=== PATIENT | female | born 1930 | race Caucasian/White ===

== ENCOUNTER 2018-09-28 13:28 | Inpatient (IN) | payer OTHER ==
[2018-09-28] VITALS (7 sets, daily range): BP systolic 97–152; BP diastolic 59–109
[~2018-09-28] VITALS: Ht 121.9 cm; Wt 64.2 kg
--- NOTE | ~2018-09-28 | HC ---
[facility] [place] [address] CONSULTATION Name: ENMABRET SUMIT Room #: 353-P [facility] IN .R.#: [id number] Admission: 09/28/18 Attend Phys: Joel Chambers MD Discharge: Date of : 03/25/29 Report #: [id number] THIS REPORT FOR: //name// CC: Joel Rodriguez DATE OF SERVICE: 09/28/2018 HISTORY OF PRESENT ILLNESS: This is an 88-year-old female patient who was evaluated because the patient's CT scan showed a possible pontine lacunar stroke. The patient was admitted with multiple symptoms. She said she woke up this morning when she was dizzy. She said her blood pressure was low. She does have a history of atrial fibrillation. Her speech was not very good and she has improved since then. She is not completely back to the baseline, but is feeling better. REVIEW OF SYSTEMS: A 14-point review of system was carried out and it looks like the patient [facility] an [facility], subsequently [facility] to [facility] facility. She has some wound on the left leg. A 14-point review of systems is positive for atrial fibrillation, looks like she is on anticoagulation. 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 This was a relevant 14-point review of system. PAST MEDICAL HISTORY: Positive for atrial fibrillation. FAMILY HISTORY: Unremarkable. SOCIAL HISTORY: She does not abuse alcohol. PHYSICAL EXAMINATION: The patient is alert, responsive, oriented, able to follow simple and complex commands. Her speech, concentration, fund of knowledge and memory is at her baseline. Cranial nerve examination II-XII looks unremarkable. It is difficult to carry out the lower extremity examination because she has a wound there, but the patient to some extent has weakness in all 4 extremities, but she indicates she is better. There is no meningeal sign in this patient. White count is 12.3. Blood pressure is 152/109, respiration is 17, pulse is 98, and temperature is 98.4. MRI and MRA were ordered and they were unremarkable. IMPRESSION: It will appear that the patient's weakness may have been related to hypotension as well as other metabolic abnormalities including hyponatremia. MAGISTRATE ASSISTANT pathology is less likely. She is already on Xarelto and I am not sure much [address] [address] CONSULTATION Name: BRET NORWOOD [place] Room #: 353-P [facility] IN ..#: [id number] Admission: 09/28/18 Attend Phys: Joel Chambers MD Discharge: Date of : 03/25/29 Report #: [id number] else can be done. We will ask Dr. Keys to follow up this patient with you from tomorrow. By: 1832 0230 Kenneth Sanchez MD /nt
[~2018-09-28 13:28] MED LIST: AVAPRO75 MG PO; CARDIOTEK-RX T1 EACH PO; CARVEDILOL6.25 MG PO; CEPHALEXIN 500500 M1 PO; COLACE100 MG PO; DIOVAN 80 MG TA80 M1 PO; DOXEPIN 10 MG C10 MG PO; FUROSEMIDE 40 M40 M1 PO; HAIR VITAMIN1 EACH PO; KRILL OIL500 MG PO; LASIX 40 MG TAB40 M2 PO; LASIX 80 MG TAB80 M1 PO; NEXIUM 40 MG CA40 M1 PO; POTASSIUM20 PO; PROAIR HFA8.5 GM INH; SORINE 80 MG TA80 M1 PO; SULFAZINE EC500 MG PO; SYMBICORT160 MCG/4. PO; SYNTHROID25 MC1 PO; VITAMIN D2000 UNIT PO; XARELTO15 MG PO
[2018-09-28 13:45] LABS: ABSOLUTE NEUTROPHILS 10.1 thou/uL (1.4-8.2); BASOPHILS 0.1 % (0.0-2.0); EOSINOPHILS 0.6 % (0.0-3.0); HEMATOCRIT 34.2 % (37.0-47.0); HEMOGLOBIN 11.5 gm/dL (12.0-15.0); LYMPHOCYTES 10.5 % (24.0-44.0); MCH 27.6 pg (26.0-34.0); MCHC 33.5 g/dL (28.0-37.0); MCV 82.4 fL (80.0-100.0); MONOCYTES 6.8 % (1.0-8.0); PLATELET COUNT 365 thou/uL (150-400); RBC 4.15 mil/uL (4.20-5.00); RDW 15.7 % (10.5-14.5); WBC 12.3 thou/uL (4.0-11.0)
[2018-09-28 13:53] LABS: ANION GAP 6 mmol/L (7-16); BUN 30 mg/dL (7-18); CALCIUM 8.9 mg/dL (8.5-10.1); CHLORIDE 95 mmol/L (98-107); CO2 30 mmol/L (21-32); CREATININE 1.1 mg/dL (0.6-1.0); GLUCOSE 116 mg/dL (74-106); POTASSIUM 3.8 mmol/L (3.5-5.1); SODIUM 131 mmol/L (136-145)
[2018-09-28 13:57] LABS: APTT 27.3 Seconds (24.5-32.8); PROTIME 10.9 Seconds (9.3-11.4)
[2018-09-28 14:00] LABS: URINE BILIRUBIN NEGATIVE (Negative); URINE BLOOD NEGATIVE (Negative); URINE CLARITY CLEAR; URINE COLOR YELLOW; URINE GLUCOSE-RANDOM* NEGATIVE (Negative); URINE KETONES NEGATIVE (Negative); URINE LEUKOCYTES NEGATIVE (Negative); URINE NITRITE NEGATIVE (Negative); URINE PROTEIN (DIPSTICK) NEGATIVE (Negative); URINE SPECIFIC GRAVITY <= 1.005 (1.005-1.035); URINE UROBILINOGEN 0.2 E.U./dl (0.2-1.0)
[2018-09-28 14:03] LABS: SGOT 25 U/L (15-37); SGPT 34 U/L (30-65); TOTAL BILIRUBIN 0.5 mg/dL (<0.1-1.0); TOTAL PROTEIN 6.2 g/dL (6.4-8.2); TROPONIN-I <0.06 ng/mL (<0.06)
[2018-09-28] MEDS ORDERED: PREDNISONE 5 MG5 M1 PO (15:54)
[2018-09-28] MEDS ORDERED: NYSTATIN100000 UNI SW&SWALLOW (15:54)
--- NOTE | 2018-09-28 19:42 | NUR ---
PT came ER gen weakness at 1720pm,pt's admitted assessment has done, pt is A&O X3, PT's BIGG stroke score is 0, pt's vs are stable, floow admitted order, pt starts IV NS @ 100ML/HR, PT denies pain , sob and new weakness at this time.
[2018-09-28 23:06] LABS: GLYCOHEMOGLOBIN (HGB A1C) 6.1 % (4.8-5.6)
[2018-09-29 04:00] VITALS: BP 121/78
[2018-09-29 05:18] LABS: ABSOLUTE NEUTROPHILS 4.9 thou/uL (1.4-8.2); BASOPHILS 0.2 % (0.0-2.0); HEMATOCRIT 29.7 % (37.0-47.0); HEMOGLOBIN 10.3 gm/dL (12.0-15.0); LYMPHOCYTES 21.5 % (24.0-44.0); MCH 28.5 pg (26.0-34.0); MCHC 34.9 g/dL (28.0-37.0); MCV 81.8 fL (80.0-100.0); MONOCYTES 8.5 % (1.0-8.0); PLATELET COUNT 338 thou/uL (150-400); POLYS 67.8 % (36.0-66.0); RBC 3.62 mil/uL (4.20-5.00); RDW 15.3 % (10.5-14.5); WBC 7.3 thou/uL (4.0-11.0)
[2018-09-29 05:51] LABS: ANION GAP 7 mmol/L (7-16); BUN 24 mg/dL (7-18); CALCIUM 8.1 mg/dL (8.5-10.1); CHLORIDE 100 mmol/L (98-107); CHOLESTEROL 145 mg/dL (<200); CO2 28 mmol/L (21-32); CREATININE 0.8 mg/dL (0.6-1.0); GLUCOSE 81 mg/dL (74-106); HDL CHOLESTEROL 46 mg/dL (>40); LDL CHOLESTEROL 83 mg/dL (<100); MAGNESIUM 1.8 mg/dL (1.8-2.4); POTASSIUM 3.8 mmol/L (3.5-5.1); SODIUM 135 mmol/L (136-145); TC:HDL 3.2 Ratio (Not establshd); TRIGLYCERIDE 81 mg/dL (<150); VLDL 16 mg/dL (<40)
[2018-09-29 05:53] LABS: SERUM ASSESSMENT Clear
--- NOTE | 2018-09-29 06:03 | NUR ---
PATIENT IS PROGRESSING SLOWLY IN HER CARE PLAN. VITAL SIGNS STABLE WITH PATIENT HAVING NO COMPLAINTS OF PAIN OR NAUSEA. PATIENT REMAINED FULLY ORIENTED THROUGHOUT SHIFT AND WAS ABLE TO CALL APPROPRIATELY FOR NEEDS. NIH CVA SCALE EFFECTIVELY ZERO WHEN ASSESSED PER DOCTOR ORDER. PATIENT DID HAVE PROBLEMS WITH BLADDER RETENTION AND WAS STRAIGHT CATHED DURING SHIFT. NURSE TO BLADDER SCAN BEFORE SHIFT CHANGE. CONTINUE PLAN OF CARE.
[2018-09-29 07:49] VITALS: BP 131/75
--- NOTE | 2018-09-29 10:17 | NUR ---
WOUND CONSULT; WOUNDS WERE IDENTIFIED; W/P#1; RIGHT BUTTOCK STAGE 2, W/P #2; LEFT ISCHIAL TUBEROSITY STAGE 2. W/O #1; LEFT ANTERIOR LE, SKIN TEAR. THE RIFGT BUTTOCK AND LEFT I/T FIBRIN WAS NOTED IN THE WOUND BED. THE LEFT ANT. LE IS A SKIN TEAR APPRIMATED THE SKIN AND APPLIED MARATHON, COVERED WITH A FOAM DRESSING. RECOMMENDATIONS; YVAN PUMP. ( RIGHT BUTTOCK AND LEFT I/T); NEREIDA, COVER WITH A BOARDERED FOAM, CHANGE M/W/F DISCUSSED WITH VANGIE
--- NOTE | 2018-09-29 10:56 | 2DMMODE ---
[facility] [address] [place] [address] 2 D/M-MODE ECHOCARDIOGRAM Name: BRET NORWOOD Room #: 353-P [facility] IN .R.#: [id number] Admission: 09/28/18 Attend Phys: Joel Chambers MD Discharge: Date of : 03/25/29 Date of Service: 09/29/18 1056 Report #: [id number] THIS REPORT FOR: //name// APPROVED REPORT Study performed: 09/29/2018 08:25:13 EXAM: Comprehensive 2D, Doppler, and color-flow Echocardiogram Patient Location: Echo lab Room #: 353 Status: routine BSA: 1.59 HR: 71 bpm BP: 131/75 mmHg Rhythm: Ireggular Other Information Study Quality: Good Indications Weakness. TIA rule out. Hx: Afib, COPD, HTN. Echo Enhancing Agent Indication: Rule out Shunt Agent(s) / Amount(s) Used: Agitated Saline 6 cc 2D Dimensions RVDd: 28.27 mm IVSd: 10.76 (7-11mm) LVOT Diam: 20.02 (18-24mm) LVDd: 42.26 mm PWd: 8.95 (7-11mm) Ascending Ao: 39.00 (22-36mm) LVDs: 30.75 (25-40mm) Aortic Root: 33.18 mm Volumes Left Atrial Volume (Systole) Single Plane 4CH: 52.72 mL Single Plane 2CH: 74.54 mL LA ESV Index: 42.00 mL/m2 Aortic Valve AoV Peak Ananda.: 1.62 m/s AO Peak Gr.: 10.45 mmHg LVOT Max P.49 mmHg LVOT Max V: 1.06 m/s LATASHA Vmax: 2.06 cm2 [facility] [employer] [address] [place] [address] 2 D/M-MODE ECHOCARDIOGRAM Name: BRET NORWOOD Room #: 353-P [facility] IN ..#: [id number] Admission: 09/28/18 Attend Phys: Joel Chambers MD Discharge: Date of : 03/25/29 Date of Service: 09/29/18 1056 Report #: [id number] Mitral Valve E/A Ratio: 2.9 MV Decel. Time: 235.62 ms MV E Max Ananda.: 1.41 m/s MV A Ananda.: 0.49 m/s MV PHT: 68.33 ms IVRT: 87.66 ms Pulmonary Valve PV Peak Ananda.: 0.83 m/s PV Peak Gr.: 2.73 mmHg Pulmonary Vein P Vein S: 0.52 m/s P Vein A: 0.24 m/s P Vein D: 0.60 m/s P Vein A Dur.: 120.0 msec P Vein S/D Ratio: 0.87 Tricuspid Valve TR Peak Ananda.: 2.56 m/s RAP Estimate: 5.00 mmHg TR Peak Gr.: 26.21 mmHg PA Pressure: 31.00 mmHg Left Ventricle The left ventricle is normal size. There is normal LV segmental wall motion. There is normal left ventricular wall thickness. Left ventricular systolic function is normal. LVEF is 55-60%. Right Ventricle The right ventricle is normal size. The right ventricular systolic function is normal. Atria Left atrium is moderately dilated. No shunting noted by contrast bubble injection. The right atrium size is normal. Aortic Valve The aortic valve is normal in structure. Trace aortic regurgitation. There is no aortic valvular stenosis. Mitral Valve The mitral valve is normal in structure. Mild mitral regurgitation. Tricuspid Valve The tricuspid valve is normal in structure. Mild tricuspid regurgitation. Estimated PAP is 30-35mmHg. [address] [address] 2 D/M-MODE ECHOCARDIOGRAM Name: ENMABRET SUMIT Room #: 353-P [facility] IN [facility]#: [id number] Admission: 09/28/18 Attend Phys: Joel Chambers MD Discharge: Date of : 03/25/29 Date of Service: 09/29/18 1056 Report #: [id number] Pulmonic Valve The pulmonary valve is normal in structure. Trace pulmonic regurgitation. Great Vessels The aortic root is normal in size. The ascending aorta is mildly dilated. IVC is normal in size and collapses >50% with inspiration. Pericardium Small pericardial effusion noted. <Conclusion> The left ventricle is normal size. LVEF is 55-60%. Left atrium is moderately dilated. The aortic valve is normal in structure. Trace aortic regurgitation. The mitral valve is normal in structure. Mild mitral regurgitation. The tricuspid valve is normal in structure. Mild tricuspid regurgitation. Estimated PAP is 30-35mmHg. The pulmonary valve is normal in structure. Trace pulmonic regurgitation. The ascending aorta is mildly dilated. Small pericardial effusion noted. <ELECTRONICALLY SIGNED> By: Jordon Petersen MD 09/29/18 1056 1056 1056 Jordon Petersen MD /INF
[2018-09-29 11:53] VITALS: BP 107/61
--- NOTE | 2018-09-29 12:14 | NUR ---
PATIENT SEEN BY PENELOPE MEYER PIE DOUGH ROLLER WITH DR. TSANG, FOR ACUTE REHAB EVALUATION. PATIENT IS TOO HIGH FUNCTIONING FOR ACUTE REHAB. PENELOPE RECOMMENDED HOME WITH HOME HEALTH CARE. GUEST RELATIONS OFFICER INFORMED. THANK YOU FOR THIS REFERRAL.
[2018-09-29 13:26] LABS: TSH 4.485 uIU/mL (0.358-3.740)
--- NOTE | 2018-09-29 13:35 | NUR ---
ASSESSMENT: CM REVIEWED CHART AND MET WITH [place] AND HER SON AT THE BEDSIDE. PT WAS ADMITTED FOR STROKE LIKE SYMPTOMS BUT APPEARS TO BE BACK AT HER BASELINE. PT WAS RECENTLY AT [place] AND WENT TO THE [facility] SWING BED AND THEN WAS DISCHARGED HOME WITH [facility]. PT WAS THEN ADMITTED HERE TO [facility]. PT REPORTS SHE FEELS FINE AND WANTS TO RETURN HOME WITH HH. SON STATING THAT HE WANTS HER TO GO TO [facility] BECAUSE SHE HAS BEEN IN THE HOSPITAL A COUPLE TIMES HERE RECENTLY. PT STATING SHE DOES NOT WANT TO AND WANTS TO GO HOME WITH HH. PT REPORTS USING A WALKER FOR AMBULATION. PT REPORTS 3 STEPS TO ENTER THE HOME WITH [facility]. PT REPORTS HAVING A GRAB BAR IN THE SHOWER. PT/OT WORKING WITH PATIENT AND RECOMMENDING HOME OR HOME WITH HH. PT REPORTS SHE WISHES TO RESUME HER SERVICES WITH VN. CM SENT REFERRAL TO [facility]. FAMILY IS WANTING TO TALK WITH DR. SPARROW. DR. SPARROW NOTIFIED AND IS TO TALK WITH FAMILY TODAY. IF PATIENT IS STABLE TO LEAVE OVER THE WEEKEND WITH HOME HEALTH, [facility] HAS ACCEPTED PATIENT AND WILL NEED TO HAVE DISCHARGE ORDERS FAXED TO THEM AT FAX:[phone]. CONTACT FOR THE [facility]:[phone].
--- NOTE | 2018-09-29 13:59 | NUR ---
Nutrition: Pt admit with weakness, R/O TIA. Seen due to wound risk. Stage 2 right buttock, Left IT wounds, and LE skin tear. Pt eating fair 50-75% of meals. Recent hospitalization and treatment for CAP which resulted in approx. 5# weight loss. 3%, favorable considering obesity. Pt would like to keep her weight around 140#. Encouraged adequate protein intake for wound healing. Pt likes meat, eggs, and milk and agrees to aim for 100% protein foods on tray. Low nutrition risk.
--- NOTE | 2018-09-29 14:00 | NUR ---
ASSUMED CARE OF PT AT 0700 THIS SHIFT. PT HAS BEEN COOPERATIVE, HAS DENIED ANY PAIN THIS SHIFT. PT HAS BEEN WANTING TO TALK T0 THE DOCTOR FOR FURTHER PLANS WHEN DISCHARGE. PT AND FAMILY CAME TO A TEMPORARY DECISION. ASSESSMENTS ARE DOCUMENTED. PT HAS HAD FAMILY VISIT, EDUCATION WAS PROVIDED. PLAN OF CARE IS TO CONITINUE T MONITOR CLOSELY AT THIS TIME, AND DISCHARGE PT TOMORROW.
[2018-09-29 16:21] VITALS: BP 134/93
--- NOTE | 2018-09-29 18:08 | EKG ---
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
[2018-09-29 19:50] VITALS: BP 127/44
[2018-09-30 03:38] VITALS: BP 132/75
[2018-09-30 05:30] LABS: HEMATOCRIT 30.2 % (37.0-47.0); HEMOGLOBIN 10.1 gm/dL (12.0-15.0); MCH 27.5 pg (26.0-34.0); MCHC 33.4 g/dL (28.0-37.0); MCV 82.2 fL (80.0-100.0); RBC 3.67 mil/uL (4.20-5.00); RDW 15.8 % (10.5-14.5); WBC 7.2 thou/uL (4.0-11.0)
[2018-09-30 05:44] LABS: CALCIUM 7.9 mg/dL (8.5-10.1); CREATININE 0.7 mg/dL (0.6-1.0); POTASSIUM 3.7 mmol/L (3.5-5.1)
[2018-09-30 07:28] VITALS: BP 158/94
[2018-09-30 15:35] VITALS: BP 158/94
[2018-09-30 15:55] VITALS: BP 156/97
--- NOTE | 2018-10-01 10:18 | HC ---
[facility] [place] [address] CONSULTATION Name: BRET NORWOOD Room #: 353-P [facility] IN ..#: [id number] Admission: 09/28/18 Attend Phys: Joel Chambers MD Discharge: 09/30/18 Date of : 03/25/29 Report #: [id number] THIS REPORT FOR: //name// CC: JOEL Oreillya Jennifer DATE OF SERVICE: 09/30/2018 HISTORY OF PRESENT ILLNESS: The patient is an 88-year-old female who was admitted with complaints of feeling generalized fatigue and dizziness. CT scan of her head showed possible pontine lacunar infarct; however, MRI was negative. She had been evaluated by Neurology. Her symptoms were thought to be not from a REGULATORY COMPLIANCE COORDINATOR event, more likely related to hypotension and other metabolic abnormalities including hyponatremia. Reason for GI consultation was earlier this morning. The patient was eating and had an episode of dysphagia. She reports no previous episodes of dysphagia recently. She does have a history of gastroesophageal reflux disease, takes Nexium on a daily basis. Denies any heartburn symptoms. She denies any odynophagia. She believes her mouth was dry and was eating a muffin as well as an egg at that time and was after this past, was able to eat, drink swallow both liquids and solids since then without difficulty. She is unsure if she has ever had an upper endoscopy in the past. Again, she denies any significant history of dysphagia or odynophagia prior to this morning. She denies any blood in her stools. She is on Xarelto for history of AFib. PAST MEDICAL HISTORY: Previous cholecystectomy, COPD, hypertension, gastroesophageal reflux disease, previous hysterectomy, cataract surgery bilaterally, history of atrial fibrillation, hypertension. MEDICATIONS ON ADMISSION: Carvedilol, potassium chloride, Lasix, Xarelto, ProAir, Symbicort, vitamin D, sotalol, Avapro, Colace and Synthroid. ALLERGIES: TETRACYCLINE. REVIEW OF SYSTEMS: As per HPI. SOCIAL HISTORY: She denies any tobacco or alcohol use. FAMILY HISTORY: Negative for colon cancer. PHYSICAL EXAMINATION: VITAL SIGNS: Temperature is 98.1, pulse 92, blood pressure 158/94, respiratory rate is 22. GENERAL: She is alert and oriented x 3, in no acute distress. HEENT: Sclerae nonicteric. Oropharynx clear. NECK: Supple, without lymphadenopathy. [facility] [address] [place] [address] CONSULTATION Name: BRET NORWOOD SUMIT Room #: 353-P [facility] IN .R.#: [id number] Admission: 09/28/18 Attend Phys: Joel Chambers MD Discharge: 09/30/18 Date of : 03/25/[birth year] Report #: [id number] CARDIOVASCULAR: Regular rate. CHEST: Clear to auscultation bilaterally. ABDOMEN: Soft, nontender, nondistended, normoactive bowel sounds. EXTREMITIES: No cyanosis, clubbing or edema. LABORATORY DATA: Sodium 135, potassium 3.7, chloride 100, bicarbonate 28, BUN 15, creatinine 0.7, AST 25, total bilirubin 0.5, calcium 7.9, magnesium 1.8, alkaline phosphatase 102, ALT 34, total protein 6.2, albumin 3.0. Troponin less than 0.06. INR 1.0. WBC 7.2, hemoglobin 10.1, was 11.5 on admission, MCV 82.2, platelet count is 312. ASSESSMENT AND PLAN: 1. Dysphagia. The patient with one episode today eating of bran muffin and eggs. She denies any dysphagia or odynophagia prior to this event and since then has been able to swallow without difficulty. I suspect this may have been the consistency of the food being dry as well as her throat. I explained to the patient we could proceed with an upper endoscopy at some point if there are recurrent symptoms. However, she would need to be off Xarelto, especially if the plan was to dilate. Since she was not having symptoms before or after, I would observe at this time. Again, if there are recurrent symptoms, could consider endoscopy at that point. She agrees with this plan. 2. Gastroesophageal reflux disease. Heartburn is well controlled on daily Nexium. We would continue. Thank you for allowing me to participate in her care. <ELECTRONICALLY SIGNED> By: Pedro Cooper MD 10/01/18 1018 1240 26 Pedro Cooper MD /nt
== END 2018-09-30 18:27 | disposition home health service (06) | DRG 69 ==
LOC: ER 13:28 → EROBS 15:07 → 3W 15:07
PROVIDERS: Emergency Medicine; Nurse Practitioner; Psychiatry & Neurology Neuromuscular Medicine; ADMIT Hospitalist
DX: G45.9 Transient cerebral ischemic attack, unspecified (principal); E87.1 Hypo-osmolality and hyponatremia; J98.11 Atelectasis; Z68.41 Body mass index [BMI] 40.0-44.9, adult; N19 Unspecified kidney failure; J44.9 Chronic obstructive pulmonary disease, unspecified; K21.9 Gastro-esophageal reflux disease without esophagitis; I10 Essential (primary) hypertension; I48.91 Unspecified atrial fibrillation; E03.9 Hypothyroidism, unspecified; E86.0 Dehydration; J45.909 Unspecified asthma, uncomplicated; R13.10 Dysphagia, unspecified; I95.9 Hypotension, unspecified; E66.9 Obesity, unspecified; Z79.899 Other long term (current) drug therapy; Z90.710 Acquired absence of both cervix and uterus; Z98.42 Cataract extraction status, left eye; Z98.41 Cataract extraction status, right eye; Z88.1 Allergy status to other antibiotic agents; Z90.49 Acquired absence of other specified parts of digestive tract
CPT/HCPCS: 10879

== ENCOUNTER 2018-10-01 17:14 | Emergency (ER) | payer OTHER ==
[~2018-10-01] VITALS: Ht 149.9 cm; Wt 64.0 kg
[~2018-10-01 17:14] MED LIST changes: +NYSTATIN100000 UNI SW&SWALLOW; +PREDNISONE 5 MG5 M1 PO
[2018-10-01 18:32] LABS: URINE BILIRUBIN NEGATIVE (Negative); URINE BLOOD 3+ (Negative); URINE CLARITY CLEAR; URINE COLOR YELLOW; URINE GLUCOSE-RANDOM* NEGATIVE (Negative); URINE KETONES NEGATIVE (Negative); URINE LEUKOCYTES 3+ (Negative); URINE NITRITE NEGATIVE (Negative); URINE PROTEIN (DIPSTICK) NEGATIVE (Negative); URINE SPECIFIC GRAVITY <= 1.005 (1.005-1.035); URINE UROBILINOGEN 0.2 E.U./dl (0.2-1.0)
[2018-10-01 18:37] LABS: SQUAMOUS >10 Many /LPF (0-3)
[2018-10-01 18:39] LABS: BACTERIA None Seen /HPF (None Seen); CASTS None Seen /LPF (None Seen); CRYSTALS None Seen /LPF (None Seen); URINE RBC 0-2 Rare /HPF (0-2); URINE WBC 0-5 Rare /HPF (0-5)
[2018-10-01 18:53] LABS: BASOPHILS 0.2 % (0.0-2.0); EOSINOPHILS 0.4 % (0.0-3.0); HEMATOCRIT 36.2 % (37.0-47.0); LYMPHOCYTES 9.9 % (24.0-44.0); MCH 27.2 pg (26.0-34.0); MCHC 33.4 g/dL (28.0-37.0); MCV 81.6 fL (80.0-100.0); PLATELET COUNT 361 thou/uL (150-400); POLYS 84.5 % (36.0-66.0); RBC 4.44 mil/uL (4.20-5.00); RDW 15.3 % (10.5-14.5); WBC 10.6 thou/uL (4.0-11.0)
[2018-10-01 18:58] LABS: HEMOGLOBIN 12.1 gm/dL (12.0-15.0)
[2018-10-01 19:00] LABS: CALCIUM 8.8 mg/dL (8.5-10.1); CREATININE 0.8 mg/dL (0.6-1.0); POTASSIUM 4.4 mmol/L (3.5-5.1)
[2018-10-01 19:06] LABS: ALBUMIN 3.3 g/dL (3.4-5.0); TOTAL BILIRUBIN 0.7 mg/dL (<0.1-1.0); TOTAL PROTEIN 6.9 g/dL (6.4-8.2)
[2018-10-01 19:08] LABS: INR 1.1; PROTIME 11.2 Seconds (9.3-11.4)
[2018-10-01 20:53] VITALS: BP 167/105
--- NOTE | 2018-10-03 17:11 | EKG ---
[place] [address] 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 : 1930 Requested By: Elda Miller Order Number: [id number] MD: Eagle Sanchez Measurements Intervals [place] Rate: 79 P: 51 GA: 154 QRS: 23 QRSD: 87 T: 21 QT: 399 QTc: 458 Interpretive Statements Sinus rhythm Atrial premature complex Compared to ECG 09/28/2018 13:33:23 Atrial premature complex(es) now present Poor R-wave progression no longer present Electronically Signed On 10-03-2018 17:10:58 CDT by Eagle Sanchez [email or web address] <ELECTRONICALLY SIGNED> By: Eagle Sanchez MD, [facility] 10/03/18 1710 18 18 Eagle Sanchez MD, [facility] /EPI
== END 2018-10-01 20:56 | disposition home or self-care (01) ==
LOC: ER 17:14
PROVIDERS: Physician Assistant
DX: S00.03XA Contusion of scalp, initial encounter (principal); R53.1 Weakness; I10 Essential (primary) hypertension; J44.9 Chronic obstructive pulmonary disease, unspecified; K21.9 Gastro-esophageal reflux disease without esophagitis; I48.91 Unspecified atrial fibrillation; Z90.710 Acquired absence of both cervix and uterus; Z98.41 Cataract extraction status, right eye; Z98.42 Cataract extraction status, left eye; Z88.1 Allergy status to other antibiotic agents; W18.39XA Other fall on same level, initial encounter; Y92.89 Other specified places as the place of occurrence of the external cause; Y93.89 Activity, other specified; Y99.8 Other external cause status

== ENCOUNTER 2019-02-03 10:54 | Inpatient (IN) | payer OTHER ==
[~2019-02-03] VITALS: Ht 147.3 cm; Wt 68.5 kg
[2019-02-03 14:19] LABS: HEMATOCRIT 33.7 % (37.0-47.0); HEMOGLOBIN 10.8 gm/dL (12.0-15.0); MCH 26.4 pg (26.0-34.0); MCHC 32.1 g/dL (28.0-37.0); MCV 82.2 fL (80.0-100.0); RBC 4.1 mil/uL (4.20-5.00); RDW 15.2 % (10.5-14.5); WBC 11.8 thou/uL (4.0-11.0)
[2019-02-03 14:26] LABS: CALCIUM 8.6 mg/dL (8.5-10.1); CREATININE 0.7 mg/dL (0.6-1.0); POTASSIUM 4.6 mmol/L (3.5-5.1)
[2019-02-03 14:32] LABS: ALBUMIN 2.9 g/dL (3.4-5.0); TOTAL BILIRUBIN 0.6 mg/dL (<0.1-1.0); TOTAL PROTEIN 5.9 g/dL (6.4-8.2)
[2019-02-03 17:52] VITALS: BP 128/72
[2019-02-03 19:30] VITALS: BP 96/52
[2019-02-03 23:40] VITALS: BP 102/52
[2019-02-04] VITALS (18 sets, daily range): BP systolic 89–140; BP diastolic 40–82
--- NOTE | 2019-02-04 02:39 | NUR ---
ASSUMED CARE FROM DAY SHIFT , PT RESTING IN BED STATES PAIN MEDICATION HELPED ALOT , PICTURES TAKEN OF BUTTOCK WOUND AND RIGHT KNEE ABRASION. PT REPOSITION FOR COMFORT, IV FLUIDS INFUSING WELL , PT NPO FOR AM SURGERY. RESTED WELL THROUGHOUT HOURLY ROUNDS. BED ALARM FOR SAFTEY. WILL CONINTUE WITH CURRENT PLAN OF CARE.
[2019-02-04 04:14] LABS: HEMATOCRIT 29.4 % (37.0-47.0); HEMOGLOBIN 9.7 gm/dL (12.0-15.0); MCH 27.1 pg (26.0-34.0); MCHC 33.1 g/dL (28.0-37.0); RBC 3.58 mil/uL (4.20-5.00); RDW 15.3 % (10.5-14.5); WBC 10.1 thou/uL (4.0-11.0)
[2019-02-04 04:33] LABS: CALCIUM 8.2 mg/dL (8.5-10.1); CREATININE 1.1 mg/dL (0.6-1.0); POTASSIUM 4.9 mmol/L (3.5-5.1)
--- NOTE | 2019-02-04 06:27 | NUR ---
PT C/O SOA NOTED CRACKLE ROBERTO CARLOS SAT 93 02 INCREASE TO 3L SAYRA GOLF COACH CALLED ORERED RECIEVED IV FLUIDS STOPPED AND 20MG IV LASIX GIVEN. OUTPUT 150 ML PRIOR LASIX.
--- NOTE | 2019-02-04 08:07 | NUR ---
PT. CARE ASSUMED AT 0700. A&Ox4. PT NPO SINCE MIDNIGHT. IV PATENT WITH NO REDNESS OR EDEMA. PT. TO GO TO A TELE MONITORING FLOOR FROM SURGERY DUE TO NEEDING MONITORING WITH THE MEDICATION SOTOLOL SPECIFICLY THE QT INTERVALS PER PHARMACY. PT LEFT FOR SURGERY AT 0808. OR NURSES AND WINE FERMENTER INFORMED ABOUT MONITORING NEED POST OP. NO FAMILY PRESENT. PT. LUNGS SOUND WET AND PT IS NERVOUSE ABOUT SURGERY. DAUGHTER IS DPOA, PAPERWORK IN CHART. DAUGHTER LIVES IN [place]. THERE IS A SON IN [place], WE DO NOT HAVE ANY INFORMATION ON HIM AND PT CANNOT PROMPT ANY.
--- NOTE | 2019-02-04 11:19 | NUR ---
ORDERS RECEIVED FOR PT EVAL AND TREAT. Pt SUSTAINED R DISTAL RADIUS FX AND ULNAR STYLOID FX WELL R SUBCAPITAL FEMORAL NECK FX. WILL NEED UPDATED PT ORDERS S/P SURGICAL INTERVENTION BEFORE INTIATING PT SERVICES WITH Pt.
--- NOTE | 2019-02-04 16:36 | NUR ---
ASSUMMED PT CARE AT APPROXIMATELY 1200. PT A&O X4. ASSESSMENT CHARTED. FALL PRECAUTIONS IN PLACE. PT DENIES HAVING CHEST PAIN. PT DENIES HAVING SOB. PT STATED SHE HAS ACUTE PAIN IN HER R HIP AREA. PT HAD A R HIP PINNING PROCEDURE TODAY. PT RECEIVING ANALGESICS. PT RECEIVING ICEPACKS. PT STATES ANALGESICS AND ICE PACKS HELP RELIEVE PAIN. PT TOLERATED CLEAR LIQUIDS. ADVANCED DIET. PT TOLERATING ADVANCED DIET. PT R HIP DRESSING C/D/I. PT HAS LESS THAN 3 SEC CAP REFILL IN R ARM WHERE R CAST IS. PT AND PT'S FAMILY EDUCATED ABOUT POC. PT AND PT'S FAMILY STATED UNDERSTANDING AND DENIED HAVING FURTHER QUESTIONS. VITAL SIGNS STABLE. PT COMFORTABLE IN BED. PT DENIES HAVING FURTHER CONCERNS. PT EDUCATED ABOUT LIMITING ROTATION, BENDING IN R LEG/HIP AND KEEPING HOB <60 DEGREES. PT STATED UNDERSTANDING.
[2019-02-05 04:09] VITALS: BP 151/106
--- NOTE | 2019-02-05 04:31 | NUR ---
ASSUMED CARE AT 1900. PT ALERT AND ORIENTED. VSS WITH SLIGHT ELEVATED BP. RIGH HIP DRESSING C/D/I. BOARDED FORM APPLIED TO COCCYX PRESSURE ULCER. MORPHINE PRN FOR SURGICAL SITE PAIN. DENIES CHEST PAIN. PT CURRENTLY STABLE. EXTERNAL FEMALE CATHETER IN PLACE. WILL CONTINUE WITH CURRENT PLAN OF CARE.
[2019-02-05 04:53] LABS: HEMATOCRIT 28.4 % (37.0-47.0); HEMOGLOBIN 9.4 gm/dL (12.0-15.0); MCH 26.9 pg (26.0-34.0); MCHC 33.2 g/dL (28.0-37.0); RBC 3.5 mil/uL (4.20-5.00); RDW 14.9 % (10.5-14.5)
[2019-02-05 07:30] VITALS: BP 155/95
[2019-02-05 12:30] VITALS: BP 116/70
--- NOTE | 2019-02-05 13:37 | NUR ---
RD consult received for poor intake: Pt s/p hip and wrist fracture s/p fall with need for surgical intervention on 02/03. also has sacral wound indicated with wound care consulted. Pt reports eats good protein sources but overall appetite down since surgery. Wts showing gain ~12 lb from usual. On lasix. Pt asking for lower calorie supplement, so will offer Ensure Max 1x daily which provides 190 florencia and 30g protein. Right hand dominant and needs assistance with meal set up due to casted arm. Low nutrition risk
--- NOTE | 2019-02-05 14:32 | NUR ---
met with patient who resides at [facility]. She fell trying to get in her wc and sustained right hip fx. last stay skilled rehab 10/17-12/13/18. Patient has approx 63 days skilled post acute care. patient plan to dc to [facility] skilled once stable. Sp with [facility] admissions who reports cannot accept patient for skilled until earliest . Notified phys. Left with son Barry to call casemgt. patient has 2 dtrs who live out of town. casemgt following.
[2019-02-05 15:25] VITALS: BP 111/61
--- NOTE | 2019-02-05 16:06 | NUR ---
FAXED REFERRAL TO [facility] FOR SKILLED STAY PT RESIDES THERE LTC. SPOKE WITH SONAL IN ADM HE RECEIVED REFERRAL. ADMISSIONS DEPT AT [facility] WILL BE OUT 02/08. DP TO FOLLOW.
--- NOTE | 2019-02-05 16:37 | NUR ---
FAXED REFERRAL TO [facility] SPOKE WITH SONAL IN INTAKE HE RECEIVED REFERRAL AND WILL REVIEW. DP TO FOLLOW.
--- NOTE | 2019-02-05 18:21 | NUR ---
ASSUMED CARE ATS SHIFT CHANGE, ASSESMENT DOCUMENTED. VSS AND SR ON THE MONITOR. MEDICATED FOR PAIN BEFORE PT SESSION, AND PATIENT TOLERATED PT WELL. Q2 POSITIONED NEEDED FOR COMFORT. REMAINS INCONTINENT AND EXTERNA FEMALE INPLACE. AND WILL COTINUE WITH POC.
[2019-02-05 20:25] VITALS: BP 124/68
--- NOTE | 2019-02-06 00:34 | NUR ---
ASSESSMENTS CHARTED, MEDS GIVEN CHARTED. PATIENT RESTING IN BED DURING SHIFT. Q2 TURNS DURING SHIFT. EXTERNAL FEMALE CATHETER IN USE. WOUND TO SACRUM FOAM DRESSING AND BARRIER CREAM USED. C/O PAIN IN RIGHT HIP AND ARM. EDUCATED PATIENT TO COUGH DEEPLY. PLAN IS TO CONTINUE WORKING WITH PHYSICAL THERAPY TO IMPROVE MOBILITY.
[2019-02-06 04:21] VITALS: BP 134/77
[2019-02-06 05:14] LABS: HEMATOCRIT 27.3 % (37.0-47.0); MCH 26.9 pg (26.0-34.0); MCHC 32.8 g/dL (28.0-37.0); RBC 3.32 mil/uL (4.20-5.00); WBC 8.8 thou/uL (4.0-11.0)
[2019-02-06 05:36] LABS: CALCIUM 8.1 mg/dL (8.5-10.1); POTASSIUM 4.8 mmol/L (3.5-5.1)
[2019-02-06 07:35] VITALS: BP 126/80
--- NOTE | 2019-02-06 09:55 | NUR ---
cont tenative plan thurs for skilled care at [facility].
[2019-02-06 12:00] VITALS: BP 117/58
--- NOTE | 2019-02-06 12:11 | NUR ---
WOUND CARE CONSULT after 3 attempts finally able to view sacral wound as pt was always up in chair, w/ assist of OT able to stand short term to assess wound w/ community health nurse staff SHAYLA NIETO present w/ some open areas bilat buttock w/ bright red drainage, alert and cooperative RECOMMENDATIONS CLEANSE W/ NS OR WOUND CLEANSER, APPLY Z GUARD, COVER W/ SACRAL FOAM DRSG BID AND PRN, ENCOURAGED TO NOT SIT LONG PERIODS, TURN Q 2 HOURS, OFF LOADING WHEN IN BED, WILL ORDER LOW AIR LOSS PUMP TO BED
[2019-02-06 15:40] VITALS: BP 130/76
[2019-02-06 16:52] VITALS: BP 130/76
--- NOTE | 2019-02-06 16:56 | NUR ---
ASSUMED CARE OF PT AT SHIFT CHANGE. ASSESSMENTS CHARTED. MEDS GIVEN PER APR. VSS. PT A&OX4. PATIENT WORKED WITH PT/OT. EXTERNAL CATHETER IN PLACE. C/O OF PAIN TREATED WITH TYLENOL WITH SATISFACTION. PT BECOMES EMOTIONAL DUE TO FRUSTRATION WHILE MOVING AND TRYING TO GET COMFORTABLE. WILL CONTINUE TO MONITOR AND FOLLOW POC.
[2019-02-06 19:26] VITALS: BP 123/66
--- NOTE | 2019-02-07 01:47 | NUR ---
ASSESSMENTS CHARTED, MEDS GIVEN CHARTED. PATIENT RESTING IN BED. Q2 TURNED DURING SHIFT TO KEEP WEIGHT AND PRESSURE OFF SACRAL AREA. SACRAL WOUND DRESSED BY DAY SHIFT. PATIENT'S SKIN BRUISED POST FALL. ON FALL PRECAUTIONS. SACRAL DRESSING CHANGED POST WOUND CARE CONSULT FOR CARE. PATIENT ON LOW AIR LOSS MATRESS. PLAN OF CARE IS FOR DISCHARGE ON TUESDAY AFTER JAGJIT TO [facility].
[2019-02-07 03:39] VITALS: BP 125/67
[2019-02-07 08:31] VITALS: BP 129/80
[2019-02-07 10:11] LABS: CREATININE 0.9 mg/dL (0.6-1.0); POTASSIUM 4.4 mmol/L (3.5-5.1)
[2019-02-07 11:36] VITALS: BP 107/56
[2019-02-07 16:02] VITALS: BP 92/53
[2019-02-07 20:21] VITALS: BP 120/69
[2019-02-08 04:00] VITALS: BP 129/51
--- NOTE | 2019-02-08 06:59 | NUR ---
A/O X 3.PAIN WELL CONTROLLED.REPOSITION Q2 HOURS AND NEEDED.MONITOR SHOWS SINUS RHYTHM.POC CONTINUED.
[2019-02-08 08:00] VITALS: BP 135/71
--- NOTE | 2019-02-08 10:54 | NUR ---
WOUND CARE F/U assessed wounds w/ staff submarine warfare officer EJ, some healing sacral area, less wilfredo, open ulcer right buttocks 1CM L X 1 CM W X .2 CM D, scant bleeding present, right knee skin tear from fall, wound red, scant drainage, right heel dti, nonopen, 1x1cm, on low air loss mattress RECOMMENDATIONS CONT ZGUARD AND SACRAL BORDER FOAM DRSG TO SACRAL AREA DAILY AND PRN, XEROFORM TO RIGHT KNEE COVER W/ BORDER FOAM 3X WEEK, PRAFORE BOOTS BOOT FEET, OFF LOADING PRESSURE RELIEF, TURN Q 2 HOURS WHEN IN BED, RECYCLING ASSISTANT INFORMED
--- NOTE | 2019-02-08 13:09 | NUR ---
All parties anticipating dc to snf at [facility] tomorrow. Shelia Champagne in [facility] updated. Dc supply planner to fax clinical update. Pt updated at bedside regarding her dc plan for tomorrow. She requested I speak with her dtr Fadia Alfaro to update family members. Fadia contacted and she will advise her siblings. [facility] will coordinate for w/c van transport early tomorrow afternoon. Will follow.
--- NOTE | 2019-02-08 14:51 | NUR ---
FAXED CLINICAL UPDATE TO [facility] SPOKE WITH SABINA IN ADM SHE RECEIVED UPDATE. DP TO FOLLOW.
[2019-02-08 16:00] VITALS: BP 116/54
--- NOTE | 2019-02-08 18:30 | NUR ---
ASSESSMENT CHARTED. PT ALERT AND ORIENTED. VSS. RECEIVED PRN PAIN MED WITH PARTIAL RELIEF. WOUND CARE TREATMENT PROVIDED. RIGHTHIP INCISION C/D/I. ENCOURAGED TO USE IS. HAD BM THIS SHIFT. WILL CONTINUE TO MONITOR.
[2019-02-08 19:54] VITALS: BP 105/52
[2019-02-09 03:31] VITALS: BP 112/64
--- NOTE | 2019-02-09 05:42 | NUR ---
ASSUMED PT CARE AROUND 191. PT RESTING IN BED AFTER PAIN MEDICATION. PT STATED SHE DOES NOT WANT TO TAKE OXYCODONE IT "MAKES ME WOOZY". ADVISED WOULD PASS ALONG AND ONLY PROVIDE TYLENOL GOING FORWARD. PT HAD BM DURING NIGHT. PT HAS ON EXTERNAL CATH DUE TO INCONTINENCE. PT IS PROGRESSING TOWARDS PLAN OF DISCHARGE TMRW. WILL CONTINUE TO MONITOR.
[2019-02-09 08:00] VITALS: BP 110/58
[2019-02-09 10:39] LABS: HEMATOCRIT 29.5 % (37.0-47.0); HEMOGLOBIN 9.5 gm/dL (12.0-15.0); MCH 27.1 pg (26.0-34.0); MCHC 32.3 g/dL (28.0-37.0); MCV 84.1 fL (80.0-100.0); RBC 3.51 mil/uL (4.20-5.00); RDW 14.9 % (10.5-14.5)
[2019-02-09 10:44] LABS: CALCIUM 8.9 mg/dL (8.5-10.1); CREATININE 0.8 mg/dL (0.6-1.0); POTASSIUM 4.7 mmol/L (3.5-5.1)
[2019-02-09 11:11] VITALS: BP 111/56
--- NOTE | 2019-02-09 17:29 | NUR ---
[facility] updated that the pt is not ready for dc today d/t pleural effusion. Possible weekend;however they are not able to accept weekend admissions due to staffing. Care team and the attending updated. Plan for dc there Tuesday if medically ready. Pt will need [facility] transport as she is not able to tolerate sitting in w/c.
--- NOTE | 2019-02-09 19:21 | NUR ---
ASSESSMENT CHARTED. PT ALERT AND ORIENTED. VSS. REPOR HAVING RIGHT HIP PAIN WITH MOVEMENT BUT DENIED THE NEED FOR PAIN MED. ORDERS GIVEN TO TRANSFER PT TO ROOM 403. FAMILY AND PT NOTIFIED. REPORT CALLED IN TO THE NURSE.
[2019-02-09 19:37] VITALS: BP 93/54
--- NOTE | 2019-02-09 20:04 | NUR ---
PATIENT ARRIVED VIA BED FROM ROOM 215 WITH [facility] SPRING WINDER AT 1910. DENIES PAIN. ALERT AND ORIENTED X4. WILL MONITOR.
--- NOTE | 2019-02-10 03:41 | NUR ---
PATIENT ALERT AND ORIENTED X4. AT TIMES SLOW TO RESPOND, HOWEVER, STATES THAT SHE CAN HEAR. DRESSING TO BUTTOCK REPLACED, DRY AND INTACT. C/O PAIN AND MEDICATED WITH TYLENOL WITH GOOD RESULTS. BRUISING FROM FALL. COOPERATIVE WITH CARE. PATIENT NOT OOB DURING THE NIGHT. DRESSING TO RIGHT HIP DRY AND INTACT. INCONTINENT OF B AND B. RESTING QUIETLY. WILL MONITOR.
[2019-02-10 05:41] LABS: HEMATOCRIT 25.5 % (37.0-47.0); HEMOGLOBIN 8.5 gm/dL (12.0-15.0); MCH 27.3 pg (26.0-34.0); MCHC 33.2 g/dL (28.0-37.0); MCV 82.4 fL (80.0-100.0); RBC 3.1 mil/uL (4.20-5.00); RDW 14.7 % (10.5-14.5)
[2019-02-10 06:04] LABS: CALCIUM 8.3 mg/dL (8.5-10.1); CREATININE 0.9 mg/dL (0.6-1.0); MAGNESIUM 1.8 mg/dL (1.8-2.4); POTASSIUM 4.6 mmol/L (3.5-5.1)
--- NOTE | 2019-02-10 06:11 | NUR ---
PATIENT HAD A CHEST XRAY THIS AM. BLOOD DRAWN FOR MG, CBC AND BMP. WILL MONITOR. RESTING QUIETLY AT TIME OF NOTE.
[2019-02-10 07:30] VITALS: BP 116/60
[2019-02-10 17:44] VITALS: BP 137/82
--- NOTE | 2019-02-10 20:17 | NUR ---
ASSUMED CARE OF PATIENT AT 0715, PATIENT C/O SOME PAIN WHEN IN SITTING POSITION, BUT REFUSED PAIN MEDS THIS SHIFT. PATIENT INCONT. OF B/B, HAS REDNESS AND SMALL OPEN AREAS, Z-GUARD APPLIED TO SACRAL AREA. PATIENT BRUISING OVER BODY FROM HER FALL, RIGHT HIP FRACTURE REPAIRED ON 02/04/19, DRESSING C/D/I. PATIENT HAS LEFT UPPER ARM IV IN PLACE, FLUSHED WITH NS AND REMIANS PATENT. PATIENT C/O SOB THIS SHIFT, SATS ABOVE 90% EACH TIME CHECKED. DR REAL NOTIFIED AND HE ORDERED CXR WHICH WAS NORMAL. DR REAL STARTED PATIENT ON SOLU-MEDROL IV Q12HRS, DOSE GIVEN. BLOOD SUGAR CHECKS ORDERED AC/HS DUE TO STEROID ORDERED. NEW ORDER TO HOLD LASIX. WILL CONTINUE TO MONITOR.
[2019-02-10 21:39] VITALS: BP 107/62
--- NOTE | 2019-02-11 03:40 | NUR ---
ASSUMED CARE OF PATIENT AT SHIFT CHANGE. ASSESSMENT CHARTED. MEDICATION GIVEN PER APR. PATIENT IS A&OX4, AGUA CALIENTE AND HAS SOME ANXIETY. VITAL SIGNS ARE STABLE AND O2 SATURATION WNL ON . PATIENT IS ON BEDREST THIS SHIFT PT/OT HAS NOT WORKED W HER YET. PATIENT DENIES PAIN. PATIENT URINATES OFTEN AND IS CHECKED AND CHANGED FREQUENTLY. PATIENT SACRAL WOUND MONITORED AND CLEANED, ZGUARD REAPPLIED NEEDED. DRESSING TO R KNEE CHANGED THIS SHIFT, DRESSING TO R HIP REMAINS C/D/I. PATIENT EXPRESSES ANXIETY AND DISTRUST BECAUSE OF HAVING TO HAVE HER BLOOD SUGARS CHECKED. PATIENT WAS EDUCATED AT SHIFT CHANGE ABOUT HOW STEROIDS RAISE BS BUT PATIENT IS STILL UNEASY. PATIENT HAS SMALL BM'S WITH EVERY CHANGE SHE GETS. PATIENT DID STATE THAT "BEING ON MY LEFT SIDE AND UP HELPS WITH BREATHING", AND WE WILL CONTINUE TO ASSIST WITH THIS POSTIONING. PATIENT DENIES ANY OTHER NEEDS AT THIS TIME. FALL PRECAUTIONS AND FREQUENT ROUNDING IN PLACE. PER CM, PATIENT TO D/C ON TUESDAY IF MEDICALLY STABLE. WILL CONTIUE TO MONITOR AND FOLLOW POC
[2019-02-11 05:33] LABS: CALCIUM 8.3 mg/dL (8.5-10.1); CREATININE 0.8 mg/dL (0.6-1.0); POTASSIUM 4.7 mmol/L (3.5-5.1)
--- NOTE | 2019-02-11 05:37 | NUR ---
THIS NURSE AGREES WITH ASSESSMENT AND NOTES BY INSTRUCTOR TRAFFIC SAFETY ON THIS PATIENT.
[2019-02-11 07:18] VITALS: BP 124/74
[2019-02-11 15:37] VITALS: BP 140/81
--- NOTE | 2019-02-11 20:19 | NUR ---
ASSUMED CARE OF PT AT 0715. PT IS A&OX3. IS ON ROOM AIR. DENIES PAIN IN IN RIGHT ARM & RLE. CAST IN PLACE TO R WRIST. SURGICAL DRSG TO RIGHT HIP C/D/I. IS ON BEDREST & TURNED Q2H. HAS WOUND ON SACRUM WITH ORDERS. Z-GUARD APPLIED. HEELS OFFLOADED. FALL PRECAUTIONS & HOURLY ROUNDING MAINTAINED. LABS & VITALS REVIEWED. CALL LIGHT WITHIN REACH. WILL CONTINUE TO MONITOR.
[2019-02-11 20:50] VITALS: BP 143/78
--- NOTE | 2019-02-12 03:47 | NUR ---
PATIENT ALERT AND ORIENTED X4. INC OF B AND B. REFUSES TO BE TURNED FROM L SIDE. DOES NOT WANT TO BE ON BACK OR R SIDE. USED PILLOWS TO CHANGE POSITION SLIGHTLY TO KEEP HER FROM BEING TOTALLY ON THE SAME SPOT. MULTIPLE BRUISES ON L ARM. CAST ON R ARM D/I. DRESSING ON R HIP D/I. SHEARING ON COCCYX. BARRIER APPLIED AND FOAM DRESSING APPLIED. DENIES PAIN. SLEPT MOST OF NIGHT,
[2019-02-12 04:40] LABS: CALCIUM 8.4 mg/dL (8.5-10.1); CREATININE 0.6 mg/dL (0.6-1.0); POTASSIUM 4.9 mmol/L (3.5-5.1)
[2019-02-12 07:48] VITALS: BP 135/89
--- NOTE | 2019-02-12 10:09 | NUR ---
SW reviewed chart and spoke with nursing and attending physician. [facility] and is progressing towards goals for discharge. Discharge is anticipated for tomorrow. Pt's sodium is low today. Pt will discharge back to [facility] when medically stable. assistant media planner to updated [facility] and fax clinical/therapy updates. SW met with pt at bedside to provide update. Pt is aware and agreeable with discharge plan. SW is following to assist as needed with discharge planning.
--- NOTE | 2019-02-12 10:30 | NUR ---
DISCHARGE PLANNING. PATIENT ANTICIPATED TO DISCHARGE TOMORROW TO [facility]. CALL PLACED TO [facility], TO NOTIFY. CLINICAL UPDATES FAXED TO [facility]. UNIT SW AWARE. FOLLOWING.
[2019-02-12 11:37] LABS: BE(vivo) -0.3 mmol/L (-2 to +3); HCO3 24.2 mmol/L (22.0-26.0); PCO2 39.3 mmHg (35.0-45.0); pH 7.408 (7.360-7.450); sO2 97.9 % (92.0-98.0)
[2019-02-12 11:42] VITALS: BP 128/74
--- NOTE | 2019-02-12 15:18 | NUR ---
Received awake on bed. Due medications given as prescribed, able to swallow meds w/o difficulty. A+O x4, forgetful. On room air. Vital signs stable. On blood sugar monitoring- taken and recorded accordingly, with sliding scale insulin given as prescribed. Incontinent of bowel and bladder- checked frequently and changed as needed. With surgical dressing at Rt hip- C/D/I. With cast on Rt arm- intact. With IV at L upper arm, NS a 100cc/hr, infusing well. With wound at coccyx- dressing in place; repositioned frequently. Pt seen by PT today, tolerated session well, able to sit out on chair. Pt seen by [facility] [employer] DIVISION MANAGER- ABG done as prescribed. Falls bundle in place. Assisted in ADLS. Encouraged and assisted in eating and drinking, refused lunch, kept offering snacks but still refusing. IV rate increased to 125cc/hr as prescribed.
[2019-02-12 15:55] VITALS: BP 128/74
[2019-02-12 20:24] VITALS: BP 165/103
--- NOTE | 2019-02-13 05:02 | NUR ---
ASSUMED PT CARE ON 02/12/19. PT IS A&OX4. IV IS IN THE LEFT UPPER ARM. PT HAD INCREASED BP AT THE BEGINING OF THE SHIFT. I RE CHECKED AFTER THE FUROSEMIDE WAS GIVEN. BP AT 2019 WAS 128/80 PULSE 87. PT STATES THAT SHE FEELS A LOT BETTER. NO COMPLAINTS OF NAUSEA AND PAIN. PT IS INCONTINENT. PT IS NOT AWARE WHEN SHE IS WET UNLESS SHE BECOMES WARM. I DID A FULL BED CHANGE. I PERFORMED A PARTIAL BED BATH WHILE PT WAS SITTING IN THE CHAIR. PT TAKES ALL OF HER SCHEDULED MEDICATION. PT IS RESTING IN HER ROOM. BLOOD SUGAR - 161 @ 2044. SHE RECEIVED 3 UNITS OF INSULIN. WILL CONTINUE TO MONITOR.
[2019-02-13 06:42] LABS: CREATININE 0.7 mg/dL (0.6-1.0); POTASSIUM 4.3 mmol/L (3.5-5.1)
[2019-02-13 07:05] VITALS: BP 160/94
--- NOTE | 2019-02-13 10:42 | NUR ---
ADAM reviewed chart and spoke with nursing. Pt remains on IV lasix. Pt's sodium still low. ADAM spoke with Binta at [facility], who states they are unable to accept pt tomorrow, due to the holiday. Pt would be able to return on . ADAM met with pt at bedside to provide update and discuss discharge plan. Pt is ready to return to the facility. ADAM explained that she will need to wait until . Pt verbalized understanding. ADAM is following to assist as needed with discharge planning.
--- NOTE | 2019-02-13 11:38 | NUR ---
WOUND CARE F/U ASSESSED WOUNDS W/ CAREERS COUNSELLOR MIKE, SACRAL WOUND HEALING, PINK VIABLE TISSUE PRESENT, KNEE WOUND ALSO HEALING, LESS DRAINAGE, PT ALERT AND COOPERATIVE, ALLOWED PRAFO BOOTS TO BE APPLIED WHEN IN BED, INSTRUCTED ON IMPORTANCE OF PRESSURE RELIEF AND TURNING, OFF LOADING RECOMMENDATIONS; CONT W/ ZGUARD AND BORDER SACRAL FOAM TO SACRAL AREA, XEROFORM AND BORDER FOAM TO R KNEE WOUND, PRAFO BOOTS WHEN IN BED, CONT PRESSURE RELIEF MEASURES AND OFF LOADING, CONT LOW AIR LOSS PUMP TO BED
[2019-02-13 14:58] VITALS: BP 115/73
--- NOTE | 2019-02-13 17:51 | NUR ---
PT ALERT AND ORIENTED TIMES FOUR. VSS, PT TOLERATES MEDS AND MEALS. PT WORKED WELL WITH PT/OT TODAY. PT UP SITTING IN THE CHAIR FOR SOME PART OF THE SHIFT. DRESSING TO BUTTOCK AND LEFT KNEE CHANGED. HIP DRESSING C/D/I. PT SLOWLY PROGRESSING TOWRADS POC GOALS.
[2019-02-13 19:14] VITALS: BP 119/80
--- NOTE | 2019-02-14 04:38 | NUR ---
Assumed pt care at 1900. Pt is A/OX4,VSS. Denies pain on assessment. Verbalizes feeling much better today and breathing better. Pt is incontinent of B&B,dressing intack on sacrum,right hip and right knee. Fall precautions in place,calls approp. Resting quietly at this time with no distress noted,oxygen on at 2L/NC. Will continue to monitor pt.
[2019-02-14 06:33] LABS: CALCIUM 8.8 mg/dL (8.5-10.1); CREATININE 0.7 mg/dL (0.6-1.0); POTASSIUM 4.5 mmol/L (3.5-5.1)
[2019-02-14 07:25] VITALS: BP 167/104
[2019-02-14 10:45] VITALS: BP 135/90
[2019-02-14 14:15] VITALS: BP 115/77
--- NOTE | 2019-02-14 19:50 | NUR ---
ASSUMED CARE OF PATIENT AT 0715, PATIENT ALERT AND ORIENTED X 4. PATIENT TTWEIGHT BEARING, IN BED ALL SHIFT. PATIENT DENIES PAIN THIS SHIFT. PATIENT INCONTINENT OF B/B, PATIENT RECEIVED LASIX 40MG IV AND URINATED MULTIPLE TIMES THIS SHIFT. PATIENT HAS LEFT HAND IV, RECEIVED LASIX IV AND SOLU-MEDROL IV, BLOOD SUGAR MONITORING ORDERED, PATIENT WAS GIVEN 3 UNITS OF INSULIN AT DINNER BS 172. WOUND CARE DONE TO SACRAL AREA X 2 THIS SHIFT. PATIENT HAS RIGHT HIP DRESSING IN PLACE, C/D/I. PATIENT RECEIVED BREATHING TREATMENTS SCHEDULED, STILL C/O SOME SOB, BUT SATS ABOVE 90%. PATIENT MAY DISCHARGE BACK TO [facility] TOMORROW. WILL CONTINUE TO MONITOR.
[2019-02-14 21:00] VITALS: BP 123/81
--- NOTE | 2019-02-15 03:20 | NUR ---
ASSUMED CARE OF PATIENT AT SHIFT CHANGE. ASSESSMENT CHARTED. MEDICATION GIVEN PER MAR. PATIENT IS A&OX4 AND DENIES PAIN. BREATHING AND O2 SATURATIONS ARE WNL ON RA. PATIENT REMAINS ON BEDREST AND IS BEING REPOSITIONED EVERY 2 HRS. PATIENT HAS A SACRAL WOUND FROM SHEARING, A R KNEE ABRASION, A SURGICAL HIP INCISION ON R HIP AND A SMALL ABRASION ON L HIP. ALL WOUND DRESSINGS ARE C/D/I AND HAVE BEEN REDRESSED PER ORDER. BARRIER CREAM APPLIED TO SMALL ABRASION ON L HIP. PATIENT REQUESTED TO HAVE HEEL BOOTIES OFF THIS PM FOR COMFORT. PATIENTS LEGS ARE NOW ELEVATED VIA PILLOW. PATIENT HAS BEEN EXPRESSING OPTIMISM ON GETTING BETTER. SHE IS BECOMING MORE POSITIVE AND OPEN TO LEARN ABOUT HER CURRENT TREATMENT. FSBS STABLE THIS PM, NO INSULIN NEEDED. PATIENT CONTINUES TO FREQUENTLY VOID AT LEAST EVERY 2 HRS AND HAS A BM WITH EACH EPISODE OF INCONTINENCE. PATIENT VOICES NO OTHER CONCERNS AND HAS BEEN SLEEPING WELL TONIGHT. PER CM NOTE, PATIENT IS TO D/C TO [facility] TODAY 02/15/2019. FALL PRECAUTIONS IN PLACE. HOB ELEVATED. WILL CONTINUE TO FREQUENTLY MONITOR AND FOLLOW PLAN OF CARE
[2019-02-15 05:26] LABS: ABSOLUTE NEUTROPHILS 6.9 thou/uL (1.4-8.2); BASOPHILS 0.4 % (0.0-2.0); HEMATOCRIT 27.7 % (37.0-47.0); HEMOGLOBIN 9.5 gm/dL (12.0-15.0); LYMPHOCYTES 8.4 % (24.0-44.0); MCH 27.8 pg (26.0-34.0); MCHC 34.2 g/dL (28.0-37.0); MCV 81.3 fL (80.0-100.0); MONOCYTES 4.7 % (1.0-8.0); PLATELET COUNT 456 thou/uL (150-400); POLYS 86.5 % (36.0-66.0); RBC 3.41 mil/uL (4.20-5.00); RDW 14.9 % (10.5-14.5); WBC 7.9 thou/uL (4.0-11.0)
[2019-02-15 05:34] VITALS: BP 152/78
--- NOTE | 2019-02-15 05:35 | NUR ---
PATIENT COMPLAINED OF "INDIGESTION LIKE PAIN" ON THE RIGHT SIDE OF HER CHEST. VITAL SIGNS WERE STABLE AT TIME OF COMPLAINT, O2 SATS WERE 99% ON RA. PATIENT'S HEART RHYTHM WAS REGULAR. PATIENT VOICED PAIN AT 5/10. PRN PAIN MED GIVEN W/ SPRITE. PATIENT STATED THE SPRITE "MADE IT COME OUT". PATIENT VOICES NO OTHER NEEDS. WILL CONTINUE TO MONITOR
[2019-02-15 06:01] LABS: CALCIUM 8.4 mg/dL (8.5-10.1); CREATININE 0.7 mg/dL (0.6-1.0); POTASSIUM 4.5 mmol/L (3.5-5.1)
[2019-02-15 08:20] VITALS: BP 136/95
--- NOTE | 2019-02-15 10:47 | NUR ---
DISCHARGE NOTE: ADAM reviewed chart and spoke with nursing and attending physician. Pt is medically stable for discharge back to [facility] today. ADAM left voice message for Shelia, in admissions at [facility] to provide update. Pt is able to transport via w/c van. Awaiting final discharge orders/summary at this time. partner integration planner to fax when available. ADAM met with pt at [facility], who is agreeable with plan. Chart copy requested. Nursing provided with number to call report. No additional SW needs identified at this time, but is available to assist should needs arise.
[2019-02-15] MEDS ORDERED: PREDNISONE 5 MG5 M1 PO (13:00)
[2019-02-15] MEDS ORDERED: CEFDINIR300 MG PO (13:00)
[2019-02-15 15:45] VITALS: BP 136/95
--- NOTE | 2019-02-15 16:15 | NUR ---
ASSUMED PT CARE AT 0700. PT AOX3 WITH FORGETFULNESS. PT VSS, DENIES PAIN, NO INSULIN GIVEN. PT UP WITH ASSIST TO BEDSIDE COMMODE. WOUND NURSE CHANGED DRESSINGS. PT BELONGINGS WERE PACKED AND TRANSPORT VAN TRANSPORTED PT TO [facility] TO SKILLED REHAB. IV DC'D.
--- NOTE | 2019-02-15 16:33 | HC ---
[facility] [address] [place] [address] CONSULTATION Name: ENMABRET SUMIT Room #: 403-P [facility] IN M.R.#: [id number] Admission: 02/03/19 Attend Phys: Keyana Coles MD Discharge: Date of : [birth year] Report #: [id number] THIS REPORT FOR: //name// CC: FAM unknown Joyce Fernandez DATE OF SERVICE: 02/03/2019 REASON FOR CONSULTATION: Right hip pain and right wrist pain. HISTORY OF PRESENT ILLNESS: The patient is an 88-year-old female who was making her bed from wheelchair. She stood and tucked some covers and she fell landing on her right side. She denied loss of consciousness, complains of right wrist pain and right hip. REVIEW OF SYSTEMS: MUSCULOSKELETAL: See HPI. She does report right rotator cuff tear chronically. NEUROLOGIC: Denies numbness or tingling in any of her extremities. PAST MEDICAL HISTORY: Significant for atrial fibrillation, COPD, rheumatoid arthritis, hypothyroidism, recent treatment with hospitalization for pneumonia. ALLERGIES: TETRACYCLINE. MEDICATIONS: Include nystatin, prednisone, carvedilol, Xarelto, albuterol, budesonide, cholecalciferol, potassium chloride, furosemide, sotalol, docusate sodium and levothyroxine. PAST SURGICAL HISTORY: Cholecystectomy, hysterectomy, cataracts and spinal tumor excision. SOCIAL HISTORY: She uses a walker or a wheelchair. She lives in an assisted living. Denies drinking alcohol or smoking cigarettes. LABORATORY STUDIES: Done on the date of admission showed white blood cell count 11.8, hemoglobin 10.8, hematocrit 33.7 and platelet count 340. Chemistry shows a low sodium at 127, low protein and albumin at 5.9 and 2.9 respectively. PHYSICAL EXAMINATION: GENERAL: The patient is alert and oriented x 3. She interacts appropriately. She is well-developed, well-nourished female in no acute distress. VITAL SIGNS: Most recent vital signs are unable to be located. See in the chart. Her height is 4 feet 10 inches tall, weight 65 kilograms. EXTREMITIES: Examination of her right upper extremity, the skin is clean, dry and intact. She has brisk capillary refill. Sensation is intact to light touch and gross motor is intact. She has a mild amount of diffuse wrist edema, [address] [address] CONSULTATION Name: BRET NORWOOD SUMIT Room #: [facility] IN M.R.#: [id number] Admission: 02/03/19 Attend Phys: Keyana Coles MD Discharge: Date of : [birth year] Report #: [id number] tenderness at the distal radius. No snuffbox or distal ulnar tenderness. No hand, forearm, elbow or arm tenderness. No pain with range of motion of the right shoulder or elbow or forearm. She has this pain with wrist range of motion. She is able to move her fingers. Skin is clean, dry and intact. The splint was reapplied. Left lower extremity exam: Sensation is intact to light touch throughout. Brisk capillary refill. She has gross motor and sensory intact. She has no tenderness to palpation throughout the entire left upper extremity and no pain with range of motion. Bilateral lower extremity exam: Sensation is intact to light touch throughout. EHL, FHL, dorsiflexion and plantarflexion are intact. There is no pain with range of motion of the knee or ankle. There is mild pain with attempted range of motion of the right hip. All compartments are soft. There is no tenderness to palpation. Left lower extremity exam; gross sensory and motor is intact. Skin is clean, dry and intact. She has no pain with range of motion of left hip, knee, ankle or foot. She is able to straight leg raises bilaterally. RADIOGRAPHS: AP pelvis and AP and lateral of the right hip show valgus impacted femoral neck fracture. AP lateral and oblique of the right wrist show minimally displaced distal radius fracture and distal ulnar fracture. There is also some diffuse arthritic changes noted. The reports were also reviewed by myself as well as the radiographs were reviewed. IMPRESSION AND PLAN: 1. Right distal radius fracture and ulnar styloid fracture that appears stable. I discussed the diagnosis as well as treatment options with the patient and plan for nonoperative treatment. I will place her either on a better splint or a cast tomorrow surgery. 2. Right subcapital femoral neck fracture, valgus impacted. I had not seen the x-rays. At this time, I talked and spoke with the patient and I anticipated the percutaneous screw fixation. We discussed typical procedure with postoperative course. The risks, benefits, alternatives and complications were discussed including but not limited to blood clots, decreased ambulatory level, nonunion, malunion, hardware failure, hardware rotation and stiffness. Informed consent was obtained. Plan to get her on the surgery schedule for tomorrow morning as long as she is medically optimized. Thank you very much for allowing me to participate in the care of this patient. <ELECTRONICALLY SIGNED> By: Radha Garcia MD 02/15/19 1633 1600 Radha Garcia MD /nt
--- NOTE | 2019-02-15 16:33 | O ---
[facility] [place] [address] OPERATIVE REPORT Name: SCOTTHERMILABRET LEE Room #: 403-P [facility] IN M.R.#: [id number] Admission: 02/03/19 Attend Phys: Keyana Coles MD Discharge: Date of : 03/25/[birth year] Report #: [id number] THIS REPORT FOR: //name// CC: DYAN cedric Chambers DATE OF SERVICE: 02/04/2019 PREOPERATIVE DIAGNOSES: 1. Right hip valgus impacted subcapital femoral neck fracture. 2. Right wrist fracture. POSTOPERATIVE DIAGNOSES: 1. Right hip valgus impacted subcapital femoral neck fracture. 2. Right wrist fracture. PROCEDURES PERFORMED: 1. Right hip percutaneous screw fixation. 2. Right cast placement in the recovery room. SURGEON: Radha Garcia MD ANESTHESIA: General mask anesthesia. ESTIMATED BLOOD LOSS: 50 mL. COMPLICATIONS: None. CONDITION: Stable. DISPOSITION: Recovery room. IMPLANTS USED: Synthes 7.5 mm cannulated screws. INDICATIONS: The patient is an 88-year-old female with the above-mentioned diagnosis. She elects for operative treatment. The risks, benefits, alternatives and complications were discussed including but not limited to blood clots, decreased ambulatory level, infection, damage to vessels or nerves, nonunion, malunion, hardware failure. Informed consent was obtained. The correct extremity was identified and labeled by myself after verbal confirmation from the patient as well as visual confirmation and signed informed consent. DESCRIPTION OF PROCEDURE: The patient was brought back to the operating room. She underwent general anesthesia on the cart. She was then transferred to the [place] fracture table. At this point, the left arm IV stopped working. Multiple attempts were made to obtain other IV access including looking at her neck and [facility] [address] [place] [address] OPERATIVE REPORT Name: SCOTTHERMILABRET SUMIT Room #: 403-P [facility] IN M.R.#: [id number] Admission: 02/03/19 Attend Phys: Keyana Coles MD Discharge: Date of : 03/25/[birth year] Report #: [id number] chest area. No other sites were able to be found and so an IV was placed in the right volar forearm while taking care to protect her fracture. The right lower extremity was sterilely prepped and draped in the usual fashion. Final timeout was taken to verify correct patient, operative procedure, operative site, all concurred. Next, approximately 5 cm incision was made at the level of the lesser trochanter. Guidewires were placed in a triangular pattern in the inferior posterior aspect of the neck in the hardest area of bone. Fluoroscopy was brought in multiple times. AP and lateral views were taken. The proximal cortex only was drilled and then the screws were placed. The inferior most screw was changed from an 80-85 in order to improve fixation. The fixation appeared to be stable. Her bone was fairly poor quality. The wound was thoroughly irrigated. The deep fascia was closed with 0 Vicryl. The subcutaneous tissue was closed with 2-0 Vicryl and the skin was closed with tim. Wound was dressed with Xeroform and sterile gauze. She was placed into a dorsal slab splint in the recovery room, a well-padded, though IV team placed an IV in her left upper extremity under ultrasound and a well-padded short arm cast was placed to her right. She tolerated this well. All fingers were pink with brisk capillary refill. <ELECTRONICALLY SIGNED> By: Radha Garcia MD 02/15/19 1633 [id number] Radha Garcia MD /nt
== END 2019-02-15 15:30 | DRG 480 ==
LOC: 4S 10:54 → 4N 12:42 → 2N 12:42 → 4S 12:42 → 2N 02-04 11:08 → 4N 02-09 19:33
PROVIDERS: Hospitalist; Internal Medicine; Nurse Practitioner Family; Orthopaedic Surgery Hand Surgery; ADMIT Internal Medicine
PROC: 2W3 Placement, Anatomical Regions, Immobilization (ICD-10-PCS; principal; 2019-02-04)
PROC: 0QH634Z Insertion of Internal Fixation Device into Right Upper Femur, Percutaneous Approach (ICD-10-PCS; 2019-02-04)
DX: S72.011A Unspecified intracapsular fracture of right femur, initial encounter for closed fracture (principal); J96.01 Acute respiratory failure with hypoxia; S52.91XA Unspecified fracture of right forearm, initial encounter for closed fracture; I50.32 Chronic diastolic (congestive) heart failure; I48.20 Chronic atrial fibrillation, unspecified; E87.1 Hypo-osmolality and hyponatremia; E46 Unspecified protein-calorie malnutrition; J90 Pleural effusion, not elsewhere classified; I13.0 Hypertensive heart and chronic kidney disease with heart failure and stage 1 through stage 4 chronic kidney disease, or unspecified chronic kidney disease; J44.1 Chronic obstructive pulmonary disease with (acute) exacerbation; J44.0 Chronic obstructive pulmonary disease with (acute) lower respiratory infection; M06.9 Rheumatoid arthritis, unspecified; E03.9 Hypothyroidism, unspecified; K21.9 Gastro-esophageal reflux disease without esophagitis; W18.39XA Other fall on same level, initial encounter; K59.00 Constipation, unspecified; J45.50 Severe persistent asthma, uncomplicated; N18.9 Chronic kidney disease, unspecified; D63.8 Anemia in other chronic diseases classified elsewhere; Z87.01 Personal history of pneumonia (recurrent); Z88.1 Allergy status to other antibiotic agents; Z79.01 Long term (current) use of anticoagulants; Z90.49 Acquired absence of other specified parts of digestive tract; Z90.710 Acquired absence of both cervix and uterus; Z99.3 Dependence on wheelchair; Y93.89 Activity, other specified; Y92.89 Other specified places as the place of occurrence of the external cause; Z98.42 Cataract extraction status, left eye; Z98.41 Cataract extraction status, right eye; Y99.8 Other external cause status; Z68.31 Body mass index [BMI] 31.0-31.9, adult
CPT/HCPCS: 10081; 10102; 10790; 10797; 50101; 50386; 51412; 51538; 52304; 53400; 53404; 56525; 56526; 57092; 62110; 62900; 70005